=== PATIENT | male | born 1960 | race Hispanic/Latino ===

== ENCOUNTER 2016-09-04 23:08 | Emergency (ER) | payer SELFPAY ==
[2016-09-04] MEDS ORDERED: ATIVAN IV ONE (23:20)
[2016-09-04] MEDS ORDERED: ATROVENT IH ONE (23:20)
[2016-09-04] MEDS ORDERED: PROVENTIL IH ONE (23:20)
[2016-09-04] MEDS ORDERED: TORADOL IV ONE (23:22)
--- NOTE | 2016-09-04 23:25 | Emergency Department Report ---
History of Present Illness - General Stated Complaint: AMS Time Seen by Provider: 09/04/16 23:20 Source: patient, family Limitations: Altered Mental Status - History of Present Illness Initial Comments: This is a 56-year-old gentleman who presents to the ED due to initially being unresponsive. indicates that she picked him up from the train station [employer] and noted him to be slurring his words. By the time he got to the house he was unresponsive and not arousable. She did call EMS. EMS found him to be unarousable state as well and were ready to intubate. They did give Narcan 2 mg IV with subsequent significant results. They decided to bring him in without further treatment at that point. He really of hiatal hernia with associated abdominal pain. He does take Percocet routinely for this. Patient' s other past medical history is significant for hypertension as well as COPD. The patient is very confused and surprised to find himself in the ED here. He is very uncomfortable in his abdomen as well as his head. 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 He does not have a history of drug abuse. He does smoke heavily. MD Complaint: accidental overdose -: Gradual, hour(s) (1) Treatments Prior to Arrival: narcan ED Review of Systems ROS: Stated complaint: AMS Other details as noted in HPI Comment: Unobtainable due to pts medical conditions Constitutional: denies: chills, fever Eyes: denies: eye pain, eye discharge, vision change ENT: denies: ear pain, throat pain Respiratory: denies: cough, shortness of breath, wheezing Cardiovascular: denies: chest pain, palpitations Endocrine: no symptoms reported Gastrointestinal: abdominal pain. denies: nausea, diarrhea Genitourinary: denies: urgency, dysuria Musculoskeletal: denies: back pain, joint swelling, arthralgia Skin: denies: rash, lesions Neurological: headache. denies: weakness, paresthesias Psychiatric: denies: anxiety, depression Hematological/Lymphatic: denies: easy bleeding, easy bruising ED Physical Exam - General General appearance: alert, in distress (agitated and uncomfortable) - Head Head exam: Present: atraumatic, normocephalic - Eye Eye exam: Present: normal appearance, PERRL, EOMI. Absent: scleral icterus - ENT ENT exam: Present: normal exam, normal orophraynx, mucous membranes moist - Neck Neck exam: Present: normal inspection - Respiratory Respiratory exam: Present: decreased breath sounds (diminshed throughout. Audible expiratory stridor). Absent: respiratory distress, wheezes, rhonchi - Cardiovascular Cardiovascular Exam: Present: regular rate, normal rhythm. Absent: systolic murmur, diastolic murmur, rubs, gallop - GI/Abdominal GI/Abdominal exam: Present: soft, tenderness (mild in periumbilical region.), normal bowel sounds. Absent: distended, guarding, rebound - Rectal Rectal exam: Present: deferred - Extremities Exam Extremities exam: Present: normal inspection. Absent: pedal edema, calf tenderness - Back Exam Back exam: Present: normal inspection. Absent: CVA tenderness (R), CVA tenderness (L), vertebral tenderness - Neurological Exam Neurological exam: Present: alert, altered, other (agitated. Confused. MOving all extremities appropriately. ) - Psychiatric Psychiatric exam: Present: normal affect, normal mood - Skin Skin exam: Present: warm, dry, intact, normal color. Absent: rash ED Course Vital Signs 09/04/16 09/05/16 23:21 00:16 Pulse Rate 104 H Respiratory 30 H 24 Rate Blood Pressure 164/97 O2 Sat by Pulse 98 Oximetry - Reevaluation(s) Reevaluation #1: 09/04/16 23:43 ECG at 2320 with sinus tachycardia at 103 bpm with a normal LA and QRS. Normal ECG. Reevaluation #2: 09/05/16 00:40 Patient's labs are noted. White cell count is slightly elevated at 14,000. Rest of his Y studies and labs are unremarkable. Patient was given a nebulized breathing treatment here. He is subjectively feeling improved from respiratory standpoint from a pain standpoint is feeling much improved as well. He describes having a large bowel movement the resolve much of his abdominal pain. He does describe mild headache. She states this is fairly chronic in nature however. He is asking go home at this time. I did have a long conversation with patient and his regarding his narcotic use. He states that in general is relatively appropriate with them he states at times he does take more than he is supposed to go. She does not do this in an abusive attempt but more so to control his pains. He states that his body can't take narcotics as well as it used to. He denies any attempts at self-harm. He denies any street drugs otherwise. Is agreed to allow his to be responsible for his medications. I feel that he is safe for home at this time. ED Medical Decision Making - Lab Data Result diagrams: 09/04/16 23:26 09/04/16 23:26 Critical care attestation.: If time is entered above; I have spent that time in minutes in the direct care of this critically ill patient, excluding procedure time. ED Disposition Clinical Impression: Narcotic overdose Qualifiers: Encounter type: initial encounter Injury intent: accidental or unintentional Qualified Code(s): T40.601A - Poisoning by unspecified narcotics, accidental ( unintentional), initial encounter Disposition: DISCHARGED TO HOME OR SELFCARE Is pt being admited?: No Does the pt Need Aspirin: No Condition: Stable Instructions: Narcotic Abuse (ED) Additional Instructions: Your is to be responsible for your narcotic medications. Referrals: PRIMARY CARE, [Primary Care Provider] - 3-5 Days Time of Disposition: 00:42
[2016-09-04 23:45] LABS: Basophils % (Auto) 0.2 % (0.0-1.8); Eosinophils % (Auto) 0.2 % (0.0-4.3); Hematocrit 39.4 % (35.5-45.6); Hemoglobin 13.1 gm/dl (11.8-15.2); Mean Corpuscular HGB Conc 33 % (32-34); Mean Corpuscular Hemoglobin 28 pg (28-32); Mean Corpuscular Volume 85 fl (84-94); Platelet Count 161 K/mm3 (140-440); Red Blood Count 4.61 M/mm3 (3.65-5.03); Red Cell Distribution Width 14.7 % (13.2-15.2); White Blood Count 14.5 K/mm3 (4.5-11.0)
--- NOTE | 2016-09-04 23:57 | XRay Report ---
FINAL REPORT PROCEDURE: XR CHEST 1V AP TECHNIQUE: Chest radiograph anteroposterior view. CPT 17645 HISTORY: Dyspnea COMPARISON: No prior studies are available for comparison. FINDINGS: Heart: Normal. Mediastinum/Vessels: Normal. Lungs/Pleural space: Normal. Bony thorax: No acute osseous abnormality. Life support devices: None. IMPRESSION: No acute cardiopulmonary abnormality.
[2016-09-05 00:09] LABS: Alanine Aminotransferase 55 units/L (7-56); Albumin 3.9 g/dL (3.9-5); Albumin/Globulin Ratio 1.3 %; Alkaline Phosphatase 58 units/L (35-129); Anion Gap 21 mmol/L; BUN/Creatinine Ratio 12.72; Bilirubin,Total 0.5 mg/dL (0.1-1.2); Blood Urea Nitrogen 14 mg/dL (9-20); Calcium 8.8 mg/dL (8.4-10.2); Carbon Dioxide 25 mmol/L (22-30); Chloride 103.1 mmol/L (98-107); Glucose 98 mg/dL (75-100); Potassium 3.6 mmol/L (3.6-5.0); Sodium 145 mmol/L (137-145); Total Protein 6.8 g/dL (6.3-8.2)
[2016-09-05 00:53] VITALS: BP 158/87
== END 2016-09-05 01:02 | disposition home or self-care (01) ==
LOC: ED 23:08
DX: T40.601A Poisoning by unspecified narcotics, accidental (unintentional), initial encounter (principal); I10 Essential (primary) hypertension; J44.9 Chronic obstructive pulmonary disease, unspecified; Y93.89 Activity, other specified; Y99.8 Other external cause status; Y92.89 Other specified places as the place of occurrence of the external cause
CPT/HCPCS: 36415; 71010; 80053; 85025; 93005; 93010; 94640; 96374; 96375; 99284; J1885; J2060; 96365

== ENCOUNTER 2017-01-09 07:13 | Emergency (ER) | payer OTHER ==
[2017-01-09] MEDS ORDERED: ATIVAN PO ONE (08:02)
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
[2017-01-09 11:10] VITALS: BP 147/91
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
== END 2017-01-09 12:15 | disposition left against medical advice (07) ==
LOC: ED 07:13
DX: S20.219A Contusion of unspecified front wall of thorax, initial encounter (principal); S62.624A Displaced fracture of middle phalanx of right ring finger, initial encounter for closed fracture; S80.01XA Contusion of right knee, initial encounter; I10 Essential (primary) hypertension; J44.9 Chronic obstructive pulmonary disease, unspecified; F17.210 Nicotine dependence, cigarettes, uncomplicated; V89.2XXA Person injured in unspecified motor-vehicle accident, traffic, initial encounter; Y93.89 Activity, other specified; Y92.89 Other specified places as the place of occurrence of the external cause; Y99.8 Other external cause status
CPT/HCPCS: 71020; 93005; 93010; 99283